=== PATIENT | female | born 1950 | race Asian ===

== ENCOUNTER 2019-02-27 00:34 | Emergency (ER) | payer MEDICARE ==
[~2019-02-27] VITALS: Ht 157.5 cm; Wt 57.6 kg
[2019-02-27 00:43] VITALS: Ht 157.5 cm; Wt 57.6 kg
[2019-02-27 02:06] VITALS: BP 147/90
== END 2019-02-27 01:57 | disposition home or self-care (01) ==
LOC: ED 00:34
DX: R04.0 Epistaxis (principal); I10 Essential (primary) hypertension; E78.00 Pure hypercholesterolemia, unspecified